=== PATIENT | female | born 1955 | race Caucasian/White ===

== ENCOUNTER → 2020-05-19 15:27 | Outpatient (CLI) | payer MEDICARE, SELFPAY ==
[2020-05-19 15:48] LABS: Monocytes # 0.4 K/mm3 (0.1-1.0); Monocytes % 6.8 % (1.7-9.3)
[2020-05-19 15:54] LABS: MANUAL DIFFERENTIAL MANUAL DIFFERENTIAL (MANUAL DIFF)
[2020-05-19 16:06] LABS: Alanine Aminotransferase 26 U/L (12-78); Albumin Level 4.5 g/dl (3.5-5.0); Albumin/Globulin Ratio 1.4 (1.1-1.8); Alkaline Phosphatase 89 U/L (38-126); Anion Gap 13.9 mEq/L (5-15); Aspartate Amino Transferase 33 U/L (14-36); Blood Urea Nitrogen 14 mg/dl (7-17); Carbon Dioxide 29 mmol/L (22.0-30.0); Chloride 98 mmol/L (98-107); Estimated Glomerular Filt Rate 72 ml/min (>60); GFR (African American) 87 ML/MIN (>60); Globulin 3.2 g/dL (1.3-3.2); Glucose 90 mg/dl (74-100); Potassium 3.9 mmoL/L (3.5-5.1); Sodium 137 mmol/L (136-145); Total Protein,Serum 7.7 g/dl (6.3-8.2)
[2020-05-19 16:17] LABS: Eosinophils % 2 % (0-3); Lymphocytes % 36 % (10-50); Monocytes % 4 % (2-9); Neutrophils % 58 % (42-76); Total Cells Counted 100
[2020-05-19 16:18] LABS: Anisocytosis 1+; Platelet Estimate Normal
[2020-05-19 16:19] LABS: Microcytosis 1+
[2020-05-19 16:24] LABS: T4 (Thyroxine) 15.4 ug/dl (5.53-11.0)
[2020-05-19 16:28] LABS: Hematocrit 43.1 % (37.0-47.0); Hemoglobin 13.4 g/dL (12.2-16.2); Mean Corpuscular Volume 77.3 fl (81-99); Platelet Count 287 K/mm3 (142-424); Red Blood Count 5.58 M/mm3 (4.20-5.40); Red Cell Distribution Width 15.2 % (11.5-17.5); White Blood Count 5.9 K/mm3 (4.8-10.8)
[2020-05-19 16:29] LABS: Basophils % 0.6 % (0.1-2.0); Eosinophils # 0.2 K/mm3 (0.0-0.4); Eosinophils % 2.8 % (0.1-12.0); Lymphocytes # 2.1 K/mm3 (0.7-4.5); Lymphocytes % 36.1 % (10-50); Mean Platelet Volume 8.5 fl (7.4-10.4); Neutrophils # 3.2 K/mm3 (1.8-7.8); Neutrophils % 53.7 % (37.0-80.0)
[2020-05-19 16:38] LABS: Thyroid Stimulating Hormone 0.02 uIU/mL (0.465-4.68)
[2020-05-19 21:24] LABS: Iron 54 ug/dL (37-170)
== END ==
PROVIDERS: Visit Provider Family Medicine
DX: E11.9 Type 2 diabetes mellitus without complications (principal); R22.0 Localized swelling, mass and lump, head; Z79.84 Long term (current) use of oral hypoglycemic drugs
CPT/HCPCS: 80053; 83540; 84436; 84443; 85007; 85025

== ENCOUNTER → 2020-05-25 14:23 | Outpatient (CLI) | payer MEDICARE, SELFPAY ==
--- NOTE | 2020-05-25 14:23 | CT_ITS ---
PROCEDURE: CT SOFT TISSUE NECK WO CON CLINICAL HISTORY: knot left ear area knot anterior to left ear x 1 month COMPARISON: No exams were available for comparison TECHNIQUE: Oral Contrast: None IV Contrast: None Axial images obtained with sagittal and coronal reformats. All CT scans at the facility use one or more dose reduction, viz: automated exposure control, ma/kV adjustment per patient size (including targeted exams where dose is matched to indication, i.e. head), or iterative reconstruction technique. FINDINGS: The nasopharynx, oropharynx, and hypopharynx have an unremarkable appearance. The glottic and epiglottic region also appear unremarkable. The uvula appears unremarkable. No thyroid enlargement or mass. There is mild mucosal thickening the floor of the maxillary sinus on the right. The patient reports a palpable abnormality anterior to the ear on the left. A BB is placed in this area but no discrete abnormal mass is apparent. The parotid gland is slightly more prominent on the left compared to the right. There are 2 small nodular densities in the mid aspect of the left parotid gland and may be due to small lymph nodes measuring up to 5 mm. There are few scattered small lymph nodes in the neck but no dominant adenopathy. The lung apices are clear. IMPRESSION: 1. No acute finding. BB is placed in the region of the palpable abnormality showing mild asymmetric prominence of the parotid gland on the left. There are 2 small soft tissue nodular densities within the left parotid gland near this area and may be due to small lymph nodes measuring up to 5 mm. Consider follow-up to confirm stability. 2. Other nonacute findings as described above. Dictated by: Tu Fleming MD 05/26/2020 08:45 Tu Fleming MD in [place] 05/26/2020 08:45
== END ==
PROVIDERS: PCP Family Medicine; Visit Provider Family Medicine
DX: R22.0 Localized swelling, mass and lump, head (principal)
CPT/HCPCS: 70490

== ENCOUNTER → 2020-07-19 16:36 | Outpatient (CLI) | payer MEDICARE, SELFPAY ==
[2020-07-19 17:31] LABS: Alanine Aminotransferase 25 U/L (12-78); Albumin Level 4.5 g/dl (3.5-5.0); Albumin/Globulin Ratio 1.4 (1.1-1.8); Alkaline Phosphatase 78 U/L (38-126); Anion Gap 10.8 mEq/L (5-15); Aspartate Amino Transferase 33 U/L (14-36); Bilirubin,Total 0.9 mg/dl (0.2-1.3); Blood Urea Nitrogen 15 mg/dl (7-17); Calcium 9.9 mg/dl (8.4-10.2); Carbon Dioxide 32 mmol/L (22.0-30.0); Chloride 95 mmol/L (98-107); Chol/HDL Ratio 3.4 (1-3.5); Cholesterol 171 mg/dl (140-200); Estimated Glomerular Filt Rate 72 ml/min (>60); GFR (African American) 87 ML/MIN (>60); Globulin 3.3 g/dL (1.3-3.2); Glucose 95 mg/dl (74-100); HDL Cholesterol 50 mg/dl (40-60); Potassium 3.8 mmoL/L (3.5-5.1); Sodium 134 mmol/L (136-145); Total Protein,Serum 7.8 g/dl (6.3-8.2); Triglycerides 168 mg/dl (30-150); VLDL Cholesterol 34 mg/dL (0-40)
[2020-07-19 17:36] LABS: Basophils # 0.1 K/mm3 (0-0.2); Basophils % 0.8 % (0.1-2.0); Eosinophils # 0.2 K/mm3 (0.0-0.4); Eosinophils % 3.6 % (0.1-12.0); Hemoglobin 13.1 g/dL (12.2-16.2); Lymphocytes # 2.2 K/mm3 (0.7-4.5); Lymphocytes % 36.3 % (10-50); Mean Corpuscular HGB Conc 32.9 g/dL (31.8-35.4); Mean Corpuscular Hemoglobin 25.2 pg (27.0-31.2); Mean Corpuscular Volume 76.6 fl (81-99); Mean Platelet Volume 8.9 fl (7.4-10.4); Monocytes # 0.4 K/mm3 (0.1-1.0); Monocytes % 6.4 % (1.7-9.3); Neutrophils # 3.1 K/mm3 (1.8-7.8); Neutrophils % 52.8 % (37.0-80.0); Platelet Count 276 K/mm3 (142-424); Red Blood Count 5.22 M/mm3 (4.20-5.40); Red Cell Distribution Width 14.7 % (11.5-17.5); White Blood Count 5.9 K/mm3 (4.8-10.8)
[2020-07-19 17:42] LABS: Direct LDL Cholesterol 91.65 mg/dL (100-129)
[2020-07-19 17:49] LABS: T4 (Thyroxine) 13.1 ug/dl (5.53-11.0)
[2020-07-19 18:03] LABS: Thyroid Stimulating Hormone 0.06 uIU/mL (0.465-4.68)
[2020-07-19 18:08] LABS: Hemoglobin A1C 5.9 % (4.0-6.0)
== END ==
PROVIDERS: Visit Provider Family Medicine
DX: E03.9 Hypothyroidism, unspecified (principal); E78.5 Hyperlipidemia, unspecified; E11.9 Type 2 diabetes mellitus without complications
CPT/HCPCS: 80053; 80061; 83036; 84436; 84443; 85025

== ENCOUNTER → 2021-03-21 15:23 | Outpatient (CLI) | payer MEDICARE, SELFPAY ==
[2021-03-21 15:39] LABS: Chloride 97 mmol/L (98-107); Potassium 3.9 mmoL/L (3.5-5.1); Sodium 137 mmol/L (136-145)
[2021-03-21 15:41] LABS: Alanine Aminotransferase 21 U/L (12-78); Aspartate Amino Transferase 32 U/L (14-36); Basophils % 0.5 % (0.1-2.0); Blood Urea Nitrogen 12 mg/dl (7-17); Eosinophils # 0.2 K/mm3 (0.0-0.4); Eosinophils % 2.6 % (0.1-12.0); Estimated Glomerular Filt Rate 62 ml/min (>60); GFR (African American) 76 ML/MIN (>60); Lymphocytes # 2.2 K/mm3 (0.7-4.5); Lymphocytes % 29.6 % (10-50); Mean Corpuscular HGB Conc 32.5 g/dL (31.8-35.4); Mean Corpuscular Hemoglobin 23.9 pg (27.0-31.2); Mean Corpuscular Volume 73.6 fl (81-99); Mean Platelet Volume 8.5 fl (7.4-10.4); Monocytes # 0.4 K/mm3 (0.1-1.0); Monocytes % 5.7 % (1.7-9.3); Neutrophils # 4.6 K/mm3 (1.8-7.8); Neutrophils % 61.6 % (37.0-80.0); Platelet Count 282 K/mm3 (142-424); Red Blood Count 5.44 M/mm3 (4.20-5.40); Red Cell Distribution Width 14.7 % (11.5-17.5); White Blood Count 7.5 K/mm3 (4.8-10.8)
[2021-03-21 15:42] LABS: Albumin Level 4.7 g/dl (3.5-5.0); Albumin/Globulin Ratio 1.4 (1.1-1.8); Alkaline Phosphatase 78 U/L (38-126); Anion Gap 13.9 mEq/L (5-15); Bilirubin,Total 0.8 mg/dl (0.2-1.3); Calcium 9.9 mg/dl (8.4-10.2); Carbon Dioxide 30 mmol/L (22.0-30.0); Chol/HDL Ratio 3.3 (1-3.5); Cholesterol 190 mg/dl (140-200); Globulin 3.3 g/dL (1.3-3.2); Glucose 113 mg/dl (74-100); HDL Cholesterol 57 mg/dl (40-60); Triglycerides 176 mg/dl (30-150); VLDL Cholesterol 35 mg/dL (0-40)
[2021-03-21 15:54] LABS: Direct LDL Cholesterol 94.71 mg/dL (100-129)
[2021-03-21 16:12] LABS: Thyroid Stimulating Hormone 5.62 uIU/mL (0.465-4.68)
[2021-03-21 16:46] LABS: Hemoglobin A1C 5.6 % (4.0-6.0)
== END ==
PROVIDERS: Visit Provider Family Medicine
DX: E78.5 Hyperlipidemia, unspecified (principal); E11.9 Type 2 diabetes mellitus without complications; Z79.84 Long term (current) use of oral hypoglycemic drugs
CPT/HCPCS: 80053; 80061; 83036; 84443; 85025

== ENCOUNTER → 2021-04-03 08:21 | Outpatient (CLI) | payer MEDICARE, SELFPAY ==
--- NOTE | 2021-04-03 08:33 | US_ITS ---
PROCEDURE: US GALLBLADDER CLINICAL INDICATION: ruq pain COMPARISON: No exams were available for comparison FINDINGS: Pancreas: Pancreas is not well delineated due to overlying bowel gas. CT or MRI without and with contrast with pancreatic protocol may provide further evaluation if clinically desired. Liver: Unremarkable. There is appropriate direction of blood flow within a non dilated portal vein. Right kidney: Unremarkable appearing. No hydronephrosis. Gallbladder: No stones are evident. There is no gallbladder wall thickening. Common duct is normal in diameter. IMPRESSION: Poor visualization of the pancreas otherwise negative right upper quadrant ultrasound. No gallstones apparent Dictated by: Tu Fleming MD 04/03/2021 11:25 Tu Fleming MD in [place] 04/03/2021 11:25
== END ==
PROVIDERS: PCP Family Medicine; Visit Provider Family Medicine
DX: R10.11 Right upper quadrant pain (principal)
CPT/HCPCS: 76705

== ENCOUNTER → 2021-12-25 13:06 | Outpatient (CLI) | payer MEDICARE, SELFPAY ==
[2021-12-25 19:35] LABS: Basophils # 0.1 K/mm3 (0-0.2); Eosinophils # 0.2 K/mm3 (0.0-0.4); Hematocrit 38.8 % (37.0-47.0); Lymphocytes # 2.1 K/mm3 (0.7-4.5); Mean Corpuscular HGB Conc 33.6 g/dL (31.8-35.4); Mean Corpuscular Volume 74.4 fl (81-99); Mean Platelet Volume 8.7 fl (7.4-10.4); Monocytes # 0.4 K/mm3 (0.1-1.0); Monocytes % 6.5 % (1.7-9.3); Neutrophils % 52.5 % (37.0-80.0); Platelet Count 329 K/mm3 (142-424); Red Blood Count 5.22 M/mm3 (4.20-5.40); Red Cell Distribution Width 16.1 % (11.5-17.5); White Blood Count 5.7 K/mm3 (4.8-10.8)
[2021-12-25 19:44] LABS: Chloride 96 mmol/L (98-107)
[2021-12-25 19:45] LABS: Potassium 3.7 mmoL/L (3.5-5.1); Sodium 134 mmol/L (136-145)
[2021-12-25 19:47] LABS: Alanine Aminotransferase 23 U/L (12-78); Alkaline Phosphatase 82 U/L (38-126); Anion Gap 10.7 mEq/L (5-15); Aspartate Amino Transferase 31 U/L (14-36); Bilirubin,Total 0.8 mg/dl (0.2-1.3); Blood Urea Nitrogen 11 mg/dl (7-17); Carbon Dioxide 31 mmol/L (22.0-30.0); Cholesterol 178 mg/dl (140-200); Estimated Glomerular Filt Rate 83 ml/min (>60); GFR (African American) 101 ML/MIN (>60); Triglycerides 160 mg/dl (30-150); VLDL Cholesterol 32 mg/dL (0-40)
[2021-12-25 19:48] LABS: Albumin Level 4.6 g/dl (3.5-5.0); Albumin/Globulin Ratio 1.4 (1.1-1.8); Calcium 9.9 mg/dl (8.4-10.2); Chol/HDL Ratio 3.2 (1-3.5); Globulin 3.2 g/dL (1.3-3.2); Glucose 112 mg/dl (74-100); HDL Cholesterol 55 mg/dl (40-60); Total Protein,Serum 7.8 g/dl (6.3-8.2)
[2021-12-25 19:59] LABS: Direct LDL Cholesterol 92.55 mg/dL (100-129)
[2021-12-25 20:19] LABS: Thyroid Stimulating Hormone 0.83 uIU/mL (0.465-4.68)
[2021-12-25 20:57] LABS: Hemoglobin A1C 5.8 % (4.0-6.0)
== END ==
PROVIDERS: PCP Family Medicine; Visit Provider Family Medicine
DX: E11.9 Type 2 diabetes mellitus without complications (principal); E78.5 Hyperlipidemia, unspecified; E03.9 Hypothyroidism, unspecified; Z79.84 Long term (current) use of oral hypoglycemic drugs
CPT/HCPCS: 80053; 80061; 83036; 84443; 85025

== ENCOUNTER → 2022-11-12 11:45 | Outpatient (CLI) | payer MEDICARE, SELFPAY ==
[2022-11-12 15:25] LABS: Basophils % 0.6 % (0.1-2.0); Eosinophils # 0.2 K/mm3 (0.0-0.4); Eosinophils % 2.9 % (0.1-12.0); Hematocrit 39.5 % (37.0-47.0); Hemoglobin 12.6 g/dL (12.2-16.2); Lymphocytes % 37.5 % (10-50); Mean Corpuscular HGB Conc 31.8 g/dL (31.8-35.4); Mean Corpuscular Hemoglobin 23.2 pg (27.0-31.2); Mean Corpuscular Volume 72.9 fl (81-99); Mean Platelet Volume 8.1 fl (7.4-10.4); Monocytes # 0.4 K/mm3 (0.1-1.0); Monocytes % 6.8 % (1.7-9.3); Neutrophils # 2.8 K/mm3 (1.8-7.8); Neutrophils % 52.2 % (37.0-80.0); Platelet Count 298 K/mm3 (142-424); Red Blood Count 5.42 M/mm3 (4.20-5.40); Red Cell Distribution Width 16.1 % (11.5-17.5); White Blood Count 5.4 K/mm3 (4.8-10.8)
[2022-11-12 16:13] LABS: Alanine Aminotransferase 25 U/L (12-78); Albumin Level 4.3 g/dl (3.5-5.0); Albumin/Globulin Ratio 1.4 (1.1-1.8); Alkaline Phosphatase 86 U/L (38-126); Aspartate Amino Transferase 33 U/L (14-36); Bilirubin,Total 0.9 mg/dl (0.2-1.3); Blood Urea Nitrogen 16 mg/dl (7-17); Calcium 9.2 mg/dl (8.4-10.2); Carbon Dioxide 29 mmol/L (22.0-30.0); Chloride 97 mmol/L (98-107); Cholesterol 165 mg/dl (140-200); Estimated Glomerular Filt Rate 83 ml/min (>60); GFR (African American) 100 ML/MIN (>60); Glucose 88 mg/dl (74-100); HDL Cholesterol 55 mg/dl (40-60); Sodium 129 mmol/L (136-145); Total Protein,Serum 7.3 g/dl (6.3-8.2); Triglycerides 100 mg/dl (30-150); VLDL Cholesterol 20 mg/dL (0-40)
[2022-11-12 16:27] LABS: Direct LDL Cholesterol 86.75 mg/dL (100-129)
[2022-11-12 16:45] LABS: Hemoglobin A1C 8.3 % (4.0-6.0)
[2022-11-12 16:46] LABS: Thyroid Stimulating Hormone 0.31 uIU/mL (0.465-4.68)
== END ==
PROVIDERS: PCP Family Medicine; Visit Provider Family Medicine
DX: E11.9 Type 2 diabetes mellitus without complications (principal); E78.5 Hyperlipidemia, unspecified; Z79.84 Long term (current) use of oral hypoglycemic drugs
CPT/HCPCS: 80053; 80061; 83036; 84443; 85025

== ENCOUNTER 2023-09-19 19:57 | Outpatient (CLI) | payer MEDICARE, OTHER, SELFPAY ==
[2023-09-19 19:19] LABS: Alanine Aminotransferase 23 U/L (12-78); Albumin Level 4.3 g/dl (3.5-5.0); Albumin/Globulin Ratio 1.4 (1.1-1.8); Alkaline Phosphatase 82 U/L (38-126); Anion Gap 9.9 mEq/L (5-15); Aspartate Amino Transferase 28 U/L (14-36); Blood Urea Nitrogen 11 mg/dl (7-17); Calcium 9.4 mg/dl (8.4-10.2); Carbon Dioxide 29 mmol/L (22.0-30.0); Chloride 97 mmol/L (98-107); Chol/HDL Ratio 3.6 (1-3.5); Cholesterol 179 mg/dl (140-200); Estimated Glomerular Filt Rate 71 ml/min (>60); GFR (African American) 86 ML/MIN (>60); Glucose 98 mg/dl (74-100); HDL Cholesterol 50 mg/dl (40-60); Potassium 3.9 mmoL/L (3.5-5.1); Sodium 132 mmol/L (136-145); Total Protein,Serum 7.3 g/dl (6.3-8.2); Triglycerides 129 mg/dl (30-150); VLDL Cholesterol 26 mg/dL (0-40)
[2023-09-19 19:29] LABS: Direct LDL Cholesterol 98.44 mg/dL (100-129)
[2023-09-19 19:30] LABS: Basophils % 0.5 % (0.1-2.0); Eosinophils # 0.1 K/mm3 (0.0-0.4); Eosinophils % 2.7 % (0.1-12.0); Hematocrit 38.5 % (37.0-47.0); Hemoglobin 12.8 g/dL (12.2-16.2); Lymphocytes % 40.4 % (10-50); Mean Corpuscular HGB Conc 33.4 g/dL (31.8-35.4); Mean Corpuscular Hemoglobin 24.4 pg (27.0-31.2); Mean Corpuscular Volume 73.2 fl (81-99); Mean Platelet Volume 8.8 fl (7.4-10.4); Monocytes # 0.3 K/mm3 (0.1-1.0); Monocytes % 6.2 % (1.7-9.3); Neutrophils # 2.5 K/mm3 (1.8-7.8); Neutrophils % 50.2 % (37.0-80.0); Platelet Count 272 K/mm3 (142-424); Red Blood Count 5.26 M/mm3 (4.20-5.40); Red Cell Distribution Width 15.8 % (11.5-17.5); White Blood Count 4.9 K/mm3 (4.8-10.8)
[2023-09-19 19:50] LABS: Thyroid Stimulating Hormone 1.69 uIU/mL (0.465-4.68)
[2023-09-19 22:36] LABS: Hemoglobin A1C 5.7 % (4.0-6.0)
== END 2023-09-19 23:59 ==
PROVIDERS: PCP Family Medicine; Visit Provider Family Medicine
DX: E11.9 Type 2 diabetes mellitus without complications (principal); R53.83 Other fatigue; E78.5 Hyperlipidemia, unspecified; E03.9 Hypothyroidism, unspecified; Z79.899 Other long term (current) drug therapy
CPT/HCPCS: 80053; 80061; 83036; 84443; 85025

== ENCOUNTER 2023-10-30 18:48 | Outpatient (CLI) | payer MEDICARE, OTHER, SELFPAY ==
[2023-10-30 18:30] LABS: Basophils % 0.5 % (0.1-2.0); Eosinophils # 0.1 K/mm3 (0.0-0.4); Eosinophils % 1.4 % (0.1-12.0); Hematocrit 41.7 % (37.0-47.0); Hemoglobin 13.2 g/dL (12.2-16.2); Lymphocytes # 1.8 K/mm3 (0.7-4.5); Lymphocytes % 28.7 % (10-50); Mean Corpuscular HGB Conc 31.6 g/dL (31.8-35.4); Mean Corpuscular Hemoglobin 24.1 pg (27.0-31.2); Mean Corpuscular Volume 76.4 fl (81-99); Monocytes # 0.5 K/mm3 (0.1-1.0); Monocytes % 7.3 % (1.7-9.3); Neutrophils # 3.9 K/mm3 (1.8-7.8); Platelet Count 289 K/mm3 (142-424); Red Blood Count 5.46 M/mm3 (4.20-5.40); Red Cell Distribution Width 16.3 % (11.5-17.5); White Blood Count 6.2 K/mm3 (4.8-10.8)
[2023-10-30 19:02] LABS: Alanine Aminotransferase 20 U/L (12-78); Albumin Level 4.3 g/dl (3.5-5.0); Albumin/Globulin Ratio 1.4 (1.1-1.8); Alkaline Phosphatase 82 U/L (38-126); Anion Gap 11.8 mEq/L (5-15); Aspartate Amino Transferase 26 U/L (14-36); Bilirubin,Total 0.9 mg/dl (0.2-1.3); Blood Urea Nitrogen 16 mg/dl (7-17); Calcium 9.6 mg/dl (8.4-10.2); Carbon Dioxide 29 mmol/L (22.0-30.0); Chloride 97 mmol/L (98-107); Estimated Glomerular Filt Rate 71 ml/min (>60); GFR (African American) 86 ML/MIN (>60); Glucose 87 mg/dl (74-100); Potassium 3.8 mmoL/L (3.5-5.1); Sodium 134 mmol/L (136-145); Total Protein,Serum 7.3 g/dl (6.3-8.2)
== END 2023-10-30 23:59 ==
PROVIDERS: PCP Family Medicine; Visit Provider Family Medicine
DX: Z01.818 Encounter for other preprocedural examination (principal); E11.9 Type 2 diabetes mellitus without complications; Z79.84 Long term (current) use of oral hypoglycemic drugs
CPT/HCPCS: 80053; 85025

== ENCOUNTER 2024-11-04 11:25 | Outpatient (CLI) | payer MEDICARE, OTHER, SELFPAY ==
[2024-11-04 18:09] LABS: Basophils % 0.6 % (0.1-2.0); Eosinophils # 0.1 K/mm3 (0.0-0.4); Eosinophils % 2.4 % (0.1-12.0); Hematocrit 37.5 % (37.0-47.0); Hemoglobin 11.3 g/dL (12.2-16.2); Lymphocytes # 1.7 K/mm3 (0.7-4.5); Lymphocytes % 31.3 % (10-50); Mean Corpuscular HGB Conc 30.1 g/dL (31.8-35.4); Mean Corpuscular Hemoglobin 21.9 pg (27.0-31.2); Mean Corpuscular Volume 72.5 fl (81-99); Monocytes # 0.5 K/mm3 (0.1-1.0); Monocytes % 8.8 % (1.7-9.3); Neutrophils % 56.5 % (37.0-80.0); Platelet Count 278 K/mm3 (142-424); Red Blood Count 5.17 M/mm3 (4.20-5.40); Red Cell Distribution Width 16.2 % (11.5-17.5); White Blood Count 5.4 K/mm3 (4.8-10.8)
[2024-11-04 20:15] LABS: Albumin Level 4.2 g/dl (3.5-5.0); Chloride 96 mmol/L (98-107)
[2024-11-04 20:16] LABS: Potassium 3.7 mmoL/L (3.5-5.1); Sodium 133 mmol/L (136-145)
[2024-11-04 20:18] LABS: Alanine Aminotransferase 18 U/L (12-78); Anion Gap 9.7 mEq/L (5-15); Aspartate Amino Transferase 25 U/L (14-36); Blood Urea Nitrogen 16 mg/dl (7-17); Carbon Dioxide 31 mmol/L (22.0-30.0); Estimated Glomerular Filt Rate 71 ml/min (>60); GFR (African American) 86 ML/MIN (>60)
[2024-11-04 20:19] LABS: Albumin/Globulin Ratio 1.4 (1.1-1.8); Alkaline Phosphatase 91 U/L (38-126); Calcium 9.2 mg/dl (8.4-10.2); Chol/HDL Ratio 3.2 (1-3.5); Cholesterol 162 mg/dl (140-200); Globulin 3.1 g/dL (1.3-3.2); Glucose 80 mg/dl (74-100); HDL Cholesterol 50 mg/dl (40-60); Total Protein,Serum 7.3 g/dl (6.3-8.2); Triglycerides 145 mg/dl (30-150); VLDL Cholesterol 29 mg/dL (0-40)
[2024-11-04 20:30] LABS: Direct LDL Cholesterol 83.38 mg/dL (100-129)
[2024-11-04 20:37] LABS: T4 (Thyroxine) 14.3 ug/dl (5.53-11.0)
[2024-11-04 20:50] LABS: Thyroid Stimulating Hormone 0.27 uIU/mL (0.465-4.68)
[2024-11-04 20:55] LABS: HIV Combo NEGATIVE (Negative)
[2024-11-04 21:04] LABS: Hepatitis C Ab Qual. W/ RFX NEGATIVE (Negative)
== END 2024-11-04 23:59 | disposition home or self-care (01) ==
LOC: LAB.DROPOF 11-05 09:13
PROVIDERS: PCP Family Medicine; Visit Provider Family Medicine
DX: Z11.4 Encounter for screening for human immunodeficiency virus [HIV] (principal); E11.9 Type 2 diabetes mellitus without complications; E03.9 Hypothyroidism, unspecified; E78.5 Hyperlipidemia, unspecified; R53.83 Other fatigue
CPT/HCPCS: 80053; 80061; 84436; 84443; 85025; 86803; 87389

== ENCOUNTER 2025-03-08 07:52 | Outpatient (CLI) | payer MEDICARE, OTHER, SELFPAY ==
[2025-03-08 16:51] LABS: T4 (Thyroxine) 11.5 ug/dl (5.53-11.0)
[2025-03-08 17:05] LABS: Thyroid Stimulating Hormone 3.49 uIU/mL (0.465-4.68)
--- OUTSIDE RECORDS SUMMARY | 2025-03-10 07:55 | XMS_ITS | Clinical Summary ---
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 Active losartan-hydroc hlorothiazide (HYZAAR) 100-25 mg Oral Tablet Take 1 Tablet by mouth daily. Active LEVOthyroxine (SYNTHROID) 125 mcg Oral Tablet Take 125 mcg by mouth daily. Active potassium chloride (MICRO-K) 10 mEq Oral Capsule, Sustained Release Take 10 mEq by mouth daily. 2 tablets daily Active ezetimibe (ZETIA) 10 mg Oral Tablet Take 10 mg by mouth daily. Active pravastatin (PRAVACHOL) 10 mg Oral Tablet Take 10 mg by mouth daily. Active oxyCODONE (ROXICODONE) 5 mg Oral Tablet Take 1 Tablet by mouth every 4 hours as needed for Major Surgery/Trauma (G89.18). 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 MAIN OR; Service: Orthopedics Medical devices from this surgery are in the Medical Devices section. Medical History Medical History Date Comments Hyperlipidemia Hypertension Heartburn Arthritis Diabetes mellitus (HCC) Hypothyroidism Sleep apnea doesnt need cpap anymore Family History Medical History Relation Name Comments Anesth Problems Neg Hx Social History Tobacco Use Types Packs/Day Years Used Date Smoking Tobacco: Never Smokeless Tobacco: Never Tobacco Cessation:Counseling Given: Not Answered Alcohol Use Standard Drinks/Week Comments Never 0 (1 standard drink = 0.6 oz pur e alcohol) Comments No Sex and Gender Information Value Date Recorded Sex Assigned at Not on file Legal Sex Female 5:47 AM EDT Gender Identity Not on file Sexual Orientation Not on file Obstetrics History Last Filed Vital Signs Vital Sign Reading Time Taken Comments Blood Pressure 155/75 11/26/2023 3:31 PM EDT Pulse 79 11/26/2023 3:31 PM EDT Temperature 36.1 C (96.9 F) 11/26/2023 3:31 PM EDT Respiratory Rate 16 11/26/2023 3:31 PM EDT Oxygen Saturation 93% 11/26/2023 3:31 PM EDT Inhaled Oxygen Concentration - - Weight 98 kg (216 lb) 11/26/2023 9:13 AM EDT Height 160 cm (5' 3 ) 11/26/2023 9:13 AM EDT Body Mass Index 38.26 11/26/2023 9:13 AM EDT Plan of Treatment Health Maintenance Due Date Last Done Comments Wellness Exam Medicare 1958 Hepatitis C Screening 1971 Breast Cancer Screening 1993 Cologuard 1998 Colon Cancer Screening 1998 Colonoscopy 1998 FIT 1998 Sigmoidoscopy 1998 Virtual Colonography 1998 Pneumococcal Vaccine 50+ (1 of 1 - PCV) 2003 Zoster (1 of 2) 2003 Bone Density Screening 2018 COVID-19 Vaccine (3 - 2023-2 5 season) 2024 12/24/2020, 11/26/2020 Influenza Vaccine (#1) 2025 DTaP/TDaP/Td (2 - Td or Tdap) 04/15/2028 04/15/2018 Hepatitis B Vaccine Aged Out No longe r eligible based on patient's age to complete this topic Meningococcal B Vaccine Aged Out No l onger eligible based on patient's age to complete this topic Medical Devices Implanted Type Area Director Advanced Device Identifier Shelf Expiration Date Model / Serial / Lot Knee Replacement Baseplate 15mm Gerardo Fix Trab Mtl Shld Rev Strle - [id number] Implanted:Qty: 1 on 11/26/2023 by Everett Francisco DO at [facility] Right: Shoulder CALI:CALI [id number] 001 08/22/2033 [id number] / / [id number] Component Glenosphere Trablr Mtl Reverse 3 Lorie 36mm+0mm - [id number] Implanted:Qty: 1 on 11/26/2023 by Everett Francisco DO at [facility] Right: Shoulder CALI:CALI [id number] 001 09/22/2033 [id number] / / [id number] Cap Ortho 3.5/8mm Lorie Lck Ti Ncb Ns Dist Fem - [id number] Implanted:Qty: 2 on 11/26/2023 by Everett Francisco DO at [facility] Right: Shoulder CALI:CALI [id number] / / Screw Bn 4mm 3.5mm 34mm Abdiel Ncb -[address] Drv Ns - [id number] Implanted:Qty: 1 on 11/26/2023 by Everett Francisco DO at [facility] Right: Shoulder CALI:CALI [id number] / / Screw Bn Abdiel 3.2mm 4.5mm 46mm Abdiel Ncb -[address] Drv Ns - [id number] Implanted:Qty: 1 on 11/26/2023 by Everett Francisco DO at [facility] Right: Shoulder CALI:CALI [id number] / / Stem Humeral 11mm Od 130mml Shoulder Revision Non-Porous - [id number] Implanted:Qty: 1 on 11/26/2023 by Everett Francisco DO at [facility] Right: Shoulder CALI:CALI [id number] 131 07/02/2033 [id number] / / [id number] Liner Shoulder Acetabular +6 Offset 36mm 65deg Vivacit-E - [id number] Implanted:Qty: 1 on 11/26/2023 by Everett Francisco DO at [facility] Right: Shoulder CALI:CALI [id number] 02/19/2025 [id number] / / [id number] Insurance MEDICARE [place] PART A AND B 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
== END 2025-03-08 23:59 | disposition home or self-care (01) ==
LOC: LAB.DROPOF 03-10 07:53
PROVIDERS: PCP Family Medicine; Visit Provider Family Medicine
DX: E03.9 Hypothyroidism, unspecified (principal)
CPT/HCPCS: 84436; 84443